=== PATIENT | male | born 1985 | race Caucasian/White ===

== ENCOUNTER 2019-10-12 19:40 | Emergency (ER) | payer BC, OTHER ==
[2019-10-12] MEDS ORDERED: Sodium Chloride 0.9% 10 ML Syringe FLUSH PRN (20:14)
--- NOTE | 2019-10-12 20:20 | EDM.PDOC ---
ED HPI GENERAL MEDICAL PROBLEM - General Stated Complaint: blood pressure Time Seen by Provider: 10/12/19 20:08 Source of Information: Reports: Patient - History of Present Illness INITIAL COMMENTS - FREE TEXT/NARRATIVE: Aleks is a 34 y/o male who is brought to the ER by his for a fast heart rate. He received a warning on his Apple watch that told him his heart rate was fast. He denies any other sx. He called [facility] and was advised to come to the ER. Yesterday in the clinic his HR was 114. He also reports that he is on Prednisone eye gtts post Lasix surgery since Friday. - Related Data Allergies Allergy/AdvReac Type Severity Reaction Status Date / Time No Known Drug Intolerances Allergy Other Verified 10/12/19 20:52 Home Meds: Home Meds Lisinopril 1 tab PO BEDTIME 11/18/14 [History] Sertraline HCl [Zoloft] 1.5 tab PO BEDTIME 11/18/14 [History] atorvaSTATin [Lipitor] 10 mg PO BEDTIME 11/18/14 [History] Review of Systems - Review of Systems Review Of Systems: See Below Constitutional: Reports: No Symptoms Eyes: Reports: No Symptoms Ears: Reports: No Symptoms Nose: Reports: No Symptoms Mouth/Throat: Reports: No Symptoms Respiratory: Reports: No Symptoms Cardiovascular: Reports: No Symptoms GI/Abdominal: Reports: No Symptoms Genitourinary: Reports: No Symptoms Musculoskeletal: Reports: No Symptoms Skin: Reports: No Symptoms Neurological: Reports: No Symptoms Psychiatric: Reports: No Symptoms ED EXAM, GENERAL - Physical Exam Exam: See Below Exam Limited By: No Limitations General Appearance: Alert, WD/WN, No Apparent Distress Ears: Normal External Exam, Normal Canal, Hearing Grossly Normal Nose: Normal Inspection, No Blood Throat/Mouth: Normal Inspection, Normal Teeth, Normal Voice, No Airway Compromise Head: Atraumatic, Normocephalic Neck: Normal Inspection Respiratory/Chest: No Respiratory Distress, Lungs Clear, Normal Breath Sounds, Chest Non-Tender Cardiovascular: Regular Rate, Rhythm, No Edema, No Gallop GI/Abdominal: Normal Bowel Sounds, Soft, Non-Tender (Male) Exam: Deferred Rectal (Males) Exam: Deferred Back Exam: Normal Inspection Extremities: Normal Inspection, Normal Range of Motion, Non-Tender, Normal Capillary Refill Neurological: Alert, Oriented, CN II-XII Intact, Normal Cognition, No Motor/ Sensory Deficits Psychiatric: Normal Affect, Normal Mood Skin Exam: Warm, Dry, Intact, Normal Color Lymphatic: No Adenopathy Course - Vital Signs Text/Narrative:: The patient was seen by the [employer]INEER. EKG done. Labs ordered. 2140 Labs are reviewed and discussed with patient. He had no sx while in the ER and HR decreased while he was resting. Last Recorded V/S: Last Vital Signs Temp 36.6 C 10/12/19 19:45 Pulse 120 H 10/12/19 19:45 Resp 14 10/12/19 19:45 BP 137/93 H 10/12/19 19:45 Pulse Ox 100 10/12/19 19:45 - Orders/Labs/Meds Orders: Active Orders 24 hr Category Date Time Status EKG Documentation Completion [RC] STAT Care 10/12/19 20:14 Ordered Sodium Chloride 0.9% [Saline Flush] Med 10/12/19 20:14 Ordered 10 ml FLUSH ASDIRECTED PRN Saline Lock Insert [OM.PC] Stat Oth 10/12/19 20:14 Ordered Medication Orders Sodium Chloride (Saline Flush) 10 ml FLUSH ASDIRECTED PRN PRN Reason: Keep Vein Open Labs: Laboratory Tests 10/12/19 10/12/19 Range/Units 20:22 20:22 WBC 6.9 (4.0-10.0) x10^3/uL RBC 4.92 (4.5-6.0) x10^6/uL Hgb 15.0 (14.0-18.0) g/dL Hct 43.7 (40.0-52.0) % MCV 88.8 (78.0-93.0) fL MCH 30.5 (26.0-32.0) pg MCHC 34.3 (32.0-36.0) g/dL RDW Coeff of Beth 13.7 (10.0-15.0) % Plt Count 244 (130-400) x10^3/uL Neut % (Auto) 65.9 (50.0-80.0) % Lymph % (Auto) 25.5 (25.0-50.0) % Vernon % (Auto) 6.3 (2.0-11.0) % Eos % (Auto) 2.0 (0.0-4.0) % Baso % (Auto) 0.3 (0.2-1.2) % Sodium 142 (136-145) mmol/L Potassium 4.1 (3.5-5.1) mmol/L Chloride 106 (98-107) mmol/L Carbon Dioxide 25 (21-32) mmol/L Anion Gap 15.1 (10-20) mmol/L BUN 22 H (7-18) mg/dL Creatinine 1.1 (0.70-1.30) mg/dL Est Cr Clr Drug Dosing TNP Estimated GFR (MDRD) > 60 Glucose 169 H (74-106) mg/dL Calcium 8.2 L (8.5-10.1) mg/dL Corrected Calcium 8.44 L (8.5-10.1) mg/dL Total Bilirubin 0.5 (0.2-1.0) mg/dL AST 28 (15-37) U/L ALT 45 (16-63) U/L Alkaline Phosphatase 80 (46-116) U/L Troponin I < 0.017 (<=0.056) ng/mL Total Protein 6.9 (6.4-8.2) g/dL Albumin 3.7 (3.4-5.0) g/dL Globulin 3.2 Albumin/Globulin Ratio 1.16 Meds: Medications Generic Name Dose Route Start Last Admin Trade Name Freq PRN Reason Stop Dose Admin Sodium Chloride 10 ml 10/12/19 20:14 Saline Flush FLUSH ASDIRECTED PRN Keep Vein Open Departure - Departure Time of Disposition: 21:43 Disposition: Home, Self-Care 01 Condition: Good Clinical Impression: Tachycardia - Discharge Information *PRESCRIPTION DRUG MONITORING PROGRAM REVIEWED*: Not Applicable *COPY OF PRESCRIPTION DRUG MONITORING REPORT IN PATIENT PAMELA: Not Applicable Instructions: Sinus Tachycardia Additional Instructions: -Finish course of eye drops as prescribed -Follow up with your PCP if any further concerns or return to the ER. - My Orders Last 24 Hours: My Active Orders 10/12/19 20:14 EKG Documentation Completion [RC] STAT Sodium Chloride 0.9% [Saline Flush] 10 ml FLUSH ASDIRECTED PRN Saline Lock Insert [OM.PC] Stat - Assessment/Plan Last 24 Hours: My Active Orders 10/12/19 20:14 EKG Documentation Completion [RC] STAT Sodium Chloride 0.9% [Saline Flush] 10 ml FLUSH ASDIRECTED PRN Saline Lock Insert [OM.PC] Stat
[2019-10-12 20:53] LABS: CHLORIDE,CL 106 mmol/L (98-107); SODIUM,NA 142 mmol/L (136-145)
[2019-10-12 20:56] LABS: ANION GAP 15.1 mmol/L (10-20)
== END 2019-10-12 21:50 | disposition home or self-care (01) ==
LOC: VM.ED 19:40
DX: R00.0 Tachycardia, unspecified (principal)
CPT/HCPCS: 36415; 80053; 84484; 85025; 93005; 99283-GF; 99284-25

== ENCOUNTER 2023-04-17 10:15 | Day surgery (SDC) | payer OTHER ==
[~2023-04-17 10:15] MED LIST: Lactated Ringers 1,000 ML IV SCH
[2023-04-17] MEDS ORDERED: fentaNYL 100 MCG/2 ML SDV ONE (12:21)
[2023-04-17] MEDS ORDERED: Propofol 200 MG/20 ML SDV ONE (12:21)
[2023-04-17] MEDS ORDERED: Midazolam 1 MG/ML 2 ML SDV ONE (12:21)
== END 2023-04-17 13:40 | disposition home or self-care (01) ==
LOC: VM.SDS 10:15
PROVIDERS: ATTEND Family Medicine
DX: D12.0 Benign neoplasm of cecum (principal); R63.4 Abnormal weight loss; I10 Essential (primary) hypertension; J30.9 Allergic rhinitis, unspecified; F41.1 Generalized anxiety disorder; F40.10 Social phobia, unspecified; F33.0 Major depressive disorder, recurrent, mild; G43.909 Migraine, unspecified, not intractable, without status migrainosus; Z98.890 Other specified postprocedural states; Z91.048 Other nonmedicinal substance allergy status; Z68.28 Body mass index [BMI] 28.0-28.9, adult
CPT/HCPCS: 00812; J2250; J2704; J3010; J7120